=== PATIENT | male | born 1995 | race American Indian/Alaskan Native ===

== ENCOUNTER 2017-06-26 21:34 | Emergency (ER) | payer BC, OTHER ==
[2017-06-26 22:21] LABS: Basophils % (Auto) 0.1 % (0.0-1.8); Hematocrit 37.8 % (35.5-45.6); Hemoglobin 11.9 gm/dl (11.8-15.2); Lymphocytes # (Auto) 0.6 K/mm3 (1.2-5.4); Lymphocytes % (Auto) 4.4 % (13.4-35.0); Mean Corpuscular HGB Conc 32 % (32-34); Mean Corpuscular Hemoglobin 29 pg (28-32); Mean Corpuscular Volume 91 fl (84-94); Monocytes # (Auto) 0.8 K/mm3 (0.0-0.8); Monocytes % (Auto) 5.6 % (0.0-7.3); Platelet Count 208 K/mm3 (140-440); Red Blood Count 4.18 M/mm3 (3.65-5.03); Red Cell Distribution Width 13.1 % (13.2-15.2)
[2017-06-26 22:37] LABS: Alanine Aminotransferase 20 units/L (7-56); Albumin 4.3 g/dL (3.9-5); BUN/Creatinine Ratio 10; Blood Urea Nitrogen 12 mg/dL (9-20); Calcium 8.7 mg/dL (8.4-10.2); Hemolysis Index 25
[2017-06-26 22:53] LABS: Bilirubin,Urine NEG (Negative); Blood,Urine MOD (Negative); Color,Urine Yellow (Yellow); Hyaline Casts,Urine 1 /LPF; Mucus,Urine FEW /HPF; Urobilinogen,Urine < 2.0 mg/dL (<2.0)
--- NOTE | 2017-06-26 22:53 | Emergency Department Report ---
ED General Adult HPI - General Chief complaint: Altered Mental Status Stated complaint: ACUTE AGITATION Time Seen by Provider: 06/26/17 22:44 Source: family, EMS Mode of arrival: Stretcher Limitations: No Limitations - History of Present Illness Initial comments: Patient was brought by EMS after mother said he was erratic. He apparently got into LSD and THC adipose. He is now awake alert oriented 3 nontoxic afebrile following commands. He did receive fluids and some benzos and round current vitals on my exam his pulse rate of 84 normal blood pressure respiration normal sat on room air. Awake alert oriented 3 nontoxic follows commands -: This evening Severity scale (0 -10): 0 Associated Symptoms: denies other symptoms. denies: confusion, chest pain, cough, diaphoresis, fever/chills, headaches, loss of appetite, malaise, nausea/ vomiting, rash, seizure, shortness of breath, syncope, weakness - Related Data Home Medications Medication Instructions Recorded Confirmed Last Taken No Known Home Medications [No 06/26/17 06/26/17 Unknown Reported Home Medications] Allergies Allergy/AdvReac Type Severity Reaction Status Date / Time No Known Allergies Allergy Unverified 06/26/17 21:53 ED Review of Systems ROS: Stated complaint: ACUTE AGITATION Other details as noted in HPI Comment: All other systems reviewed and negative Constitutional: denies: diaphoresis, fever, malaise, weakness ENT: denies: dental pain, hearing loss, epistaxis Respiratory: denies: cough, orthopnea, shortness of breath, SOB with exertion, SOB at rest, stridor Cardiovascular: denies: chest pain, palpitations, dyspnea on exertion, orthopnea , edema, syncope, paroxysmal nocturnal dyspnea Gastrointestinal: denies: diarrhea, constipation, hematemesis, melena Genitourinary: denies: frequency, hematuria, discharge Musculoskeletal: denies: joint swelling, arthralgia, myalgia Neurological: denies: numbness, paresthesias, confusion, abnormal gait, vertigo Psychiatric: denies: auditory hallucinations, visual hallucinations, homicidal thoughts, suicidal thoughts Hematological/Lymphatic: denies: easy bleeding ED Past Medical Hx - Past Medical History Previous Medical History?: No - Surgical History Past Surgical History?: No - Social History Smoking Status: Never Smoker Substance Use Type: Marijuana - Medications Home Medications: Home Medications Medication Instructions Recorded Confirmed Last Taken Type No Known Home Medications [No 06/26/17 06/26/17 Unknown History Reported Home Medications] ED Physical Exam - General Limitations: No Limitations General appearance: alert, in no apparent distress, anxious - Head Head exam: Present: atraumatic, normocephalic - Eye Eye exam: Present: PERRL, EOMI - ENT ENT exam: Present: normal exam, normal orophraynx - Neck Neck exam: Present: normal inspection. Absent: tenderness, meningismus - Respiratory Respiratory exam: Present: normal lung sounds bilaterally. Absent: respiratory distress, wheezes, rales, rhonchi, stridor, chest wall tenderness, accessory muscle use, decreased breath sounds - Cardiovascular Cardiovascular Exam: Present: regular rate, normal rhythm, normal heart sounds - GI/Abdominal GI/Abdominal exam: Present: soft. Absent: tenderness, guarding, rebound, rigid , mass, pulsatile mass - Extremities Exam Extremities exam: Present: normal inspection, normal capillary refill. Absent: pedal edema, joint swelling, calf tenderness - Back Exam Back exam: Present: normal inspection - Neurological Exam Neurological exam: Present: alert, oriented X3, CN II-XII intact. Absent: motor sensory deficit ED Course Vital Signs 06/26/17 21:46 Temperature 98 F Pulse Rate 130 H Blood Pressure 152/60 O2 Sat by Pulse 99 Oximetry ED Medical Decision Making - Lab Data Result diagrams: 06/26/17 22:13 06/26/17 22:13 - EKG Data -: EKG Interpreted by Me EKG shows normal: sinus rhythm Rate: tachycardia - EKG Data 06/27/17 00:[address] changes - Medical Decision Making Patient States He Is Now Ambulatory Aroused He Is Stable for Outpatient Follow- Up No SI No HI ,Tachycardia That He Had en Rounte Which per EMS Was in the 140s Is Now Resolved and He Is Normal Sinus Rhythm without Acute ST-T Changes lab Studies Are Essentially Unremarkable except for Positive Drug Screen He Is Stable for Outpatient Follow-Up. w/o co, no si no hi Critical care attestation.: If time is entered above; I have spent that time in minutes in the direct care of this critically ill patient, excluding procedure time. ED Disposition Clinical Impression: Polysubstance abuse Disposition: DC-01 TO HOME OR SELFCARE Is pt being admited?: No Condition: Stable Instructions: Polysubstance Abuse (ED) Additional Instructions: Stop doing drugs see regular doctor return if worse Referrals: NENA HOOPER MD [Primary Care Provider] - 3-5 Days Time of Disposition: 00:29
[2017-06-26 22:59] LABS: Amphetamine Screen,Urine PRESUMPTIVE NEGATIVE; Cannabinoid Screen,Urine PRESUMPTIVE NEGATIVE; Cocaine Screen,Urine PRESUMPTIVE NEGATIVE; Methadone Screen,Urine PRESUMPTIVE NEGATIVE; Opiate Screen,Urine PRESUMPTIVE NEGATIVE
[2017-06-26 23:35] LABS: Benzodiazepines Screen,Urine PRESUMPTIVE POSITIVE
[2017-06-27 01:12] VITALS: BP 117/78
== END 2017-06-27 00:58 | disposition home or self-care (01) ==
LOC: ED 21:34
DX: F12.10 Cannabis abuse, uncomplicated (principal)
CPT/HCPCS: 36415; 80053; 80307; 81001; 84443; 85025; 93005; 93010; 99284; G0480; 80320

== ENCOUNTER 2018-10-08 11:36 | Emergency (ER) | payer OTHER ==
[2018-10-08 11:46] VITALS: BP 132/56
--- NOTE | 2018-10-08 11:47 | Event Note ---
ED Screening Note Date of service: 10/08/18 Time: 11:45 ED Screening Note: 23 y/o male comes in for 2 day history of rash on feet and hand fine rash on face. This initial assessment/diagnostic orders/clinical plan/treatment(s) is/are subject to change based on patients health status, clinical progression and re- assessment by fellow clinical providers in the ED. Further treatment and workup at subsequent clinical providers discretion. Patient/guardian urged not to elope from the ED as their condition may be serious if not clinically assessed and managed. Initial orders include:
--- NOTE | 2018-10-08 12:34 | Emergency Department Report ---
- General Chief complaint: Skin Rash Stated complaint: RT HAND PAIN/WHITE SPOTS/ Time Seen by Provider: 10/08/18 11:54 Source: patient Mode of arrival: Ambulatory Limitations: No Limitations - History of Present Illness Initial comments: Patient is a 23-year-old male who presents to the emergency room with complaints of a rash to his bilateral hands and face that began yesterday. He states that it itches and is painful. He states he took Claritin one time without much relief. He denies any new foods, soaps, medications, detergents, lotions. He denies any known allergies. He states he has a past medical history of asthma. He denies any fever. - Related Data Previous Rx's Medication Instructions Recorded Last Taken Type Hydrocortisone 0.5% (Nf) 1 applicatio TP TID #1 tube 10/08/18 Unknown Rx [Hydrocortisone 0.5% OINT] Nystas/Diphen/Xyl Visc/Mylanta 30 ml MM BID PRN #480 ml 10/08/18 Unknown Rx [Magic Mouthwash] Prednisone [predniSONE 10 mg 10 mg PO .TAPER #1 tab.ds.pk 10/08/18 Unknown Rx (6-Day Pack, 21 Tabs)] diphenhydrAMINE [Benadryl CAP] 25 mg PO Q6HR PRN #20 capsule 10/08/18 Unknown Rx Allergies Allergy/AdvReac Type Severity Reaction Status Date / Time No Known Allergies Allergy Unverified 06/26/17 21:53 Abscess Boil HPI - HPI Chief Complaint: Skin Rash Stated Complaint: RT HAND PAIN/WHITE SPOTS/ Time Seen by Provider: 10/08/18 11:54 Home Medications: Previous Rx's Medication Instructions Recorded Last Taken Type Hydrocortisone 0.5% (Nf) 1 applicatio TP TID #1 tube 10/08/18 Unknown Rx [Hydrocortisone 0.5% OINT] Nystas/Diphen/Xyl Visc/Mylanta 30 ml MM BID PRN #480 ml 10/08/18 Unknown Rx [Magic Mouthwash] Prednisone [predniSONE 10 mg 10 mg PO .TAPER #1 tab.ds.pk 10/08/18 Unknown Rx (6-Day Pack, 21 Tabs)] diphenhydrAMINE [Benadryl CAP] 25 mg PO Q6HR PRN #20 capsule 10/08/18 Unknown Rx Allergies/Adverse Reactions: Allergies Allergy/AdvReac Type Severity Reaction Status Date / Time No Known Allergies Allergy Unverified 06/26/17 21:53 ED Review of Systems ROS: Stated complaint: RT HAND PAIN/WHITE SPOTS/ Other details as noted in HPI Comment: All other systems reviewed and negative ED Past Medical Hx - Past Medical History Previous Medical History?: No Hx Asthma: Yes - Surgical History Past Surgical History?: No - Social History Smoking Status: Never Smoker Substance Use Type: None - Medications Home Medications: Home Medications Medication Instructions Recorded Confirmed Last Taken Type Hydrocortisone 0.5% (Nf) 1 applicatio TP TID #1 tube 10/08/18 Unknown Rx [Hydrocortisone 0.5% OINT] Nystas/Diphen/Xyl Visc/Mylanta 30 ml MM BID PRN #480 ml 10/08/18 Unknown Rx [Magic Mouthwash] Prednisone [predniSONE 10 mg 10 mg PO .TAPER #1 tab.ds.pk 10/08/18 Unknown Rx (6-Day Pack, 21 Tabs)] diphenhydrAMINE [Benadryl CAP] 25 mg PO Q6HR PRN #20 capsule 10/08/18 Unknown Rx ED Physical Exam - General Limitations: No Limitations General appearance: alert, in no apparent distress, other (non toxic appearing) - Head Head exam: Present: atraumatic, normocephalic - Eye Eye exam: Present: normal appearance, PERRL, EOMI - ENT ENT exam: Present: mucous membranes moist, other (small shallow ulcerations to the posterior pharynx, no exudates, no tonsillar hypertrophy) - Respiratory Respiratory exam: Present: normal lung sounds bilaterally. Absent: respiratory distress, wheezes, rales, rhonchi, stridor, chest wall tenderness, accessory muscle use, decreased breath sounds, prolonged expiratory - Cardiovascular Cardiovascular Exam: Present: regular rate, normal rhythm, normal heart sounds. Absent: diastolic murmur, rubs, gallop - Neurological Exam Neurological exam: Present: alert, oriented X3 - Psychiatric Psychiatric exam: Present: normal affect, normal mood - Skin Skin exam: Present: warm, dry, other (small erythematous papules to the dorsum and palmar surface to the bilateral hands and to the face, no blisters, no skin denuding, no necrosis ) ED Course Vital Signs 10/08/18 11:45 Temperature 98.2 F Pulse Rate 56 L Respiratory 16 Rate Blood Pressure 132/56 O2 Sat by Pulse 98 Oximetry ED Medical Decision Making - Medical Decision Making Patient is a 23-year-old male who presents to the emergency room with complaints of a rash to his bilateral hands and face that began yesterday. He states that it itches and is painful. He states he took Claritin one time without much relief. He denies any new foods, soaps, medications, detergents, lotions. He denies any known allergies. He states he has a past medical history of asthma. He denies any fever. on exam: small shallow ulcerations to the posterior pharynx, no exudates, no tonsillar hypertrophy. small erythematous papules to the dorsum and palmar surface to the bilateral hands and to the face, no blisters, no skin denuding, no necrosis. pt evaluated by Dr. Albrecht who recommended to treat as a contact dermatitis. pt given steroids and benadryl and hydrocortisone ointment. discussed not to use ointment on the face. also given magic mouthwash due to ulcers. advised to please take medication as prescribed. follow up with a primary care doctor in the next 2-3 days. return to the emergency room for any new or worsening symptoms. - Differential Diagnosis contact derm, irrritant derm, allergic rxn, rash Critical care attestation.: If time is entered above; I have spent that time in minutes in the direct care of this critically ill patient, excluding procedure time. ED Disposition Clinical Impression: Rash, Ulcer Disposition: DC-01 TO HOME OR SELFCARE Is pt being admited?: No Does the pt Need Aspirin: No Condition: Stable Instructions: Acute Rash (ED) Additional Instructions: please take medication as prescribed. follow up with a primary care doctor in the next 2-3 days. return to the emergency room for any new or worsening symptoms. Prescriptions: diphenhydrAMINE [Benadryl CAP] 25 mg PO Q6HR PRN #20 capsule PRN Reason: Itching Hydrocortisone 0.5% (Nf) [Hydrocortisone 0.5% OINT] 1 applicatio TP TID #1 tube Nystas/Diphen/Xyl Visc/Mylanta [Magic Mouthwash] 30 ml MM BID PRN #480 ml PRN Reason: sore throat Prednisone [predniSONE 10 mg (6-Day Pack, Tabs)] 10 mg PO .TAPER #1 tab.ds.pk Referrals: ELHAM HAMILTONDOUGLAS MD CASPER [Primary Care Provider] - 2-3 Days Time of Disposition: 12:33 Print Language: CAMBOD[place]
== END 2018-10-08 12:50 | disposition home or self-care (01) ==
LOC: ED 11:36
DX: J39.2 Other diseases of pharynx (principal); R21 Rash and other nonspecific skin eruption; J45.909 Unspecified asthma, uncomplicated; Z79.899 Other long term (current) drug therapy
CPT/HCPCS: 99282